=== PATIENT | female | born 1980 ===

== ENCOUNTER 2017-01-30 09:45 | Day surgery (SDC) | payer SELFPAY ==
[2016-03-11 02:55] VITALS: BMI 31.2
[2017-01-30] MEDS ORDERED: Lactated Ringer's 500 ML IV ONE (12:55)
[2017-01-30 13:05] VITALS: O2SAT 100
[2017-01-30] MEDS ORDERED: Midazolam 2 MG/2 ML VIAL ONE (13:18)
[2017-01-30] MEDS ORDERED: Propofol 10 mg/ml Inj (20 ML) ONE (13:18)
[2017-01-30 14:04] VITALS: BP 114/72; PULSE 68; RESP 12; TEMP 98
== END 2017-01-30 14:07 | disposition home or self-care (01) ==
LOC: H.ENDO 09:45
PROVIDERS: ATTEND Internal Medicine Gastroenterology
DX: K30 Functional dyspepsia (principal); K21.9 Gastro-esophageal reflux disease without esophagitis; K31.9 Disease of stomach and duodenum, unspecified

== ENCOUNTER 2017-04-01 14:39 | Emergency (ER) | payer SELFPAY ==
[2017-04-01 14:40] VITALS: BMI 31.2
[2017-04-01 14:53] VITALS: BP 122/68; PULSE 76; RESP 18; TEMP 98.2; O2SAT 99
--- NOTE | 2017-04-01 15:38 | ED PDOC ---
HPI: Back Time Seen by Provider: 04/01/17 14:40 Chief Complaint (Nursing): Back Pain Chief Complaint (Provider): Back pain History Per: Patient History/Exam Limitations: no limitations Onset/Duration Of Symptoms: Days (4) Current Symptoms Are (Timing): Still Present Quality Of Discomfort: "Pain" Severity: Moderate Previous Symptoms: None Associated Symptoms: None Exacerbating Factor(s): Movement Additional History Per: Patient Additional Complaint(s): The pt is a 36yo female, presents to the ED for evaluation of lower back pain for the past 4 days. She denies any injury or trauma to the area. Pt also denies any heavy lifting or strenuous use of her back. She currently offers no additional medical complaints. Past Medical History Reviewed: Historical Data, Nursing Documentation, Vital Signs Vital Signs: Last Vital Signs Temp 98.2 F 04/01/17 14:50 Pulse 76 04/01/17 14:50 Resp 18 04/01/17 14:50 BP 122/68 04/01/17 14:50 Pulse Ox 99 04/01/17 14:50 - Medical History PMH: No Chronic Diseases - Surgical History Surgical History: No Surg Hx - Family History Family History: States: No Known Family Hx - Living Arrangements Living Arrangements: With Family - Social History Current smoker - smoking cessation education provided: No Alcohol: None Drugs: Denies - Home Medications Home Medications: Ambulatory Orders Medication Instructions Recorded Chlorzoxazone [Lorzone] 750 mg PO BID #10 tab 04/01/17 Naproxen 500 mg PO Q12H PRN #20 ect 04/01/17 - Allergies Allergies/Adverse Reactions: Allergies Allergy/AdvReac Type Severity Reaction Status Date / Time No Known Allergies Allergy Verified 01/30/17 12:53 Review of Systems ROS Statement: Except As Marked, All Systems Reviewed And Found Negative Musculoskeletal: Positive for: Back Pain Physical Exam - Reviewed Nursing Documentation Reviewed: Yes Vital Signs Reviewed: Yes - Physical Exam Appears: Positive for: Well, Non-toxic, No Acute Distress Head Exam: Positive for: ATRAUMATIC, NORMAL INSPECTION, NORMOCEPHALIC Skin: Positive for: Normal Color Eye Exam: Positive for: Normal appearance Neck: Positive for: Normal Cardiovascular/Chest: Positive for: Regular Rate, Rhythm Respiratory: Positive for: Normal Breath Sounds. Negative for: Respiratory Distress Back: Positive for: Other (Midline tenderness lumbar spine, tenderness to right SI joint also noted.) Neurologic/Psych: Positive for: Alert, Oriented - ECG O2 Sat by Pulse Oximetry: 99 (RA) Pulse Ox Interpretation: Normal Medical Decision Making Medical Decision Making: Time: 1500 Impression: Lower back pain Plan: -- Flexeril 10 mg PO -- Tradol 15 mg IM -- XR Lumbar spine Scribe Attestation: Documented by Ryanne Hughes, acting as a scribe for ELAINA Veliz Provider Attestation: All medical record entries made by the Scribe were at my direction and personally dictated by me. I have reviewed the chart and agree that the record accurately reflects my personal performance of the history, physical exam, medical decision making, and the department course for this patient. I have also personally directed, reviewed, and agree with the discharge instructions and disposition. Disposition - Clinical Impression Clinical Impression: Back pain - Patient ED Disposition Is Patient to be Admitted: No Counseled Patient/Family Regarding: Diagnosis, Need For Followup, Rx Given - Disposition Referrals: [facility] [Outside] On License Of [facility] [Outside] Disposition: Routine/Home Disposition Time: 16:08 Condition: GOOD Prescriptions: Chlorzoxazone [Lorzone] 750 mg PO BID #10 tab Naproxen 500 mg PO Q12H PRN #20 ect PRN Reason: Pain, Severe (8-10) Instructions: Acute Low Back Pain (ED) Print Language: [place]ICAN CITIZEN
--- NOTE | 2017-04-01 16:05 | RAD ---
PROCEDURE: Radiographs of the Lumbar Spine. HISTORY: back pain COMPARISON: No prior. FINDINGS: BONES: Normal alignment. No listhesis. No fracture. DISC SPACES: Unremarkable. OTHER FINDINGS: None. IMPRESSION: Unremarkable radiographs of the lumbar spine.
== END 2017-04-01 17:57 | disposition home or self-care (01) ==
LOC: H.ER 14:39
DX: M54.5 Low back pain (principal)

== ENCOUNTER 2018-03-28 17:39 | Emergency (ER) | payer SELFPAY ==
[2018-03-28 18:10] VITALS: BMI 26.6
[2018-03-28 18:12] VITALS: BP 129/63; PULSE 65; RESP 16; TEMP 985; O2SAT 100
[2018-03-28] MEDS ORDERED: Sodium Chloride 0.9% 1,000 ML IV STA (19:20)
--- NOTE | 2018-03-28 19:23 | ED PDOC ---
HPI: Abdomen Time Seen by Provider: 03/28/18 18:59 History Per: Patient History/Exam Limitations: no limitations Onset/Duration Of Symptoms: Days Outside of [place] travel?: No Current Symptoms Are (Timing): Still Present Context: Food Location Of Pain/Discomfort: LLQ Quality Of Discomfort: Cramping Associated Symptoms: Nausea, Vomiting, Diarrhea. denies: Fever, Chills, Loss Of Appetite, Constipation Exacerbating Factors: None Alleviating Factors: None Last Bowel Movement: Today Additional History Per: Patient Additional Complaint(s): No PMHx presenting with nausea, vomiting, diarrhea, and abdominal pain. States it started on Friday afternoon, states it started with nausea and progressed to vomiting and diarrhea, both non-bloody, non-bilious. States she has tried diet modification with toast, "jeanne", and bland foods but states everything today "came back up". States she's having cramping lower abdominal pain worse on the left. States that when she has a bowel movement, the pain on the L side gets worse. No fevers, chills. No abdominal surgeries PMD: [facility] Past Medical History Reviewed: Historical Data, Nursing Documentation, Vital Signs Vital Signs: Last Vital Signs Temp 985 F H 03/28/18 18:11 Pulse 65 03/28/18 18:11 Resp 16 03/28/18 18:11 BP 129/63 03/28/18 18:11 Pulse Ox 100 03/29/18 00:02 - Medical History PMH: No Chronic Diseases - Surgical History Surgical History: No Surg Hx - Family History Family History: States: No Known Family Hx - Home Medications Home Medications: Ambulatory Orders Medication Instructions Recorded Chlorzoxazone [Lorzone] 750 mg PO BID #10 tab 04/01/17 Naproxen 500 mg PO Q12H PRN #20 ect 04/01/17 Dicyclomine [Bentyl] 20 mg PO BID #30 tab 03/29/18 Ondansetron [Zofran] 4 mg PO Q8H #12 tab 03/29/18 - Allergies Allergies/Adverse Reactions: Allergies Allergy/AdvReac Type Severity Reaction Status Date / Time No Known Allergies Allergy Verified 01/30/17 12:53 Review of Systems ROS Statement: Except As Marked, All Systems Reviewed And Found Negative Gastrointestinal: Positive for: Nausea, Vomiting, Abdominal Pain, Diarrhea Physical Exam - Reviewed Nursing Documentation Reviewed: Yes Vital Signs Reviewed: Yes - Physical Exam Appears: Positive for: Well, Non-toxic, No Acute Distress Head Exam: Positive for: ATRAUMATIC, NORMAL INSPECTION, NORMOCEPHALIC Skin: Positive for: Normal Color, Warm, DRY Eye Exam: Positive for: EOMI, Normal appearance, PERRL ENT: Positive for: Normal ENT Inspection Neck: Positive for: Normal, Painless ROM Cardiovascular/Chest: Positive for: Regular Rate, Rhythm Respiratory: Positive for: CNT, Normal Breath Sounds Gastrointestinal/Abdominal: Positive for: Bowel Sounds, Soft, Tenderness (LLQ, mild tenderness). Negative for: Organomegaly, Mass, Distended, Guarding, Rebound, Hernia, Asicites Back: Positive for: Normal Inspection Extremity: Positive for: Normal ROM Neurologic/Psych: Positive for: Alert, dye expert II-XII, Oriented - Laboratory Results Result Diagrams: 03/28/18 19:55 03/28/18 19:55 - ECG O2 Sat by Pulse Oximetry: 100 Pulse Ox Interpretation: Normal Medical Decision Making Medical Decision MakinPM A/P: No PMHx presenting with LLQ pain with nausea, vomiting, diarrhea -possibly gastroenteritis, but based on physical exam also possibly diverticulitis v. colitis, less likely appendicitis -will check labs, get CT, hydrate, toradol for pain, zofran for nausea -will re-eval 1200AM EXAM: CT Abdomen and Pelvis With Intravenous Contrast CLINICAL HISTORY: 37 years old, female; Pain; Abdominal pain; Epigastric; Additional info: Llq pain, n/v/d, abd pain TECHNIQUE: Axial computed tomography images of the abdomen and pelvis with intravenous contrast. All CT scans at this facility use one or more dose reduction techniques, viz.: automated exposure control; ma/kV adjustment per patient size (including targeted exams where dose is matched to indication; i.e. head); or iterative reconstruction technique. Coronal and sagittal reformatted images were created and reviewed. CONTRAST: 95 mL of omnipaque administered intravenously. COMPARISON: No relevant prior studies available. FINDINGS: Lung bases: Unremarkable. No mass. No consolidation. ABDOMEN: Liver: Unremarkable. No mass. Gallbladder and bile ducts: Unremarkable. No calcified stones. No ductal dilation. Pancreas: Unremarkable. No mass. No ductal dilation. Spleen: Unremarkable. No splenomegaly. Adrenals: Unremarkable. No mass. Kidneys and ureters: Unremarkable. No solid mass. No hydronephrosis. Stomach and bowel: Fluid-filled mildly prominent small bowel loops. Fluid- filled stomach. PELVIS: Appendix: No findings to suggest acute appendicitis. Bladder: Unremarkable. No mass. Reproductive: Unremarkable as visualized. ABDOMEN and PELVIS: Intraperitoneal space: Unremarkable. No free air. No significant fluid collection. Bones/joints: No acute fracture. No dislocation. RUSSEL THORNTON | Final Radiology Report CONFIDENTIALITY STATEMENT This report is intended only for use by the referring physician, and only in accordance with law. If you received this in error, call [phone]. Page 2 of 2 Soft tissues: Unremarkable. Vasculature: Unremarkable. No abdominal aortic aneurysm. Lymph nodes: Unremarkable. No enlarged lymph nodes. IMPRESSION: 1. CT findings most consistent with a nonspecific enteritis. 2. No bowel obstruction. 3. Remainder of findings as above. Patient is feeling much better, no longer vomiting, abdomen feels better, no longer tender. Advised patient to followup with PMD, will prescribe zofran and bentyl. Return precautions given. Well appearing, stable vitals upon discharge. Disposition - Clinical Impression Clinical Impression: Enteritis - Patient ED Disposition Is Patient to be Admitted: No - Disposition Referrals: [facility] [Outside] Disposition: Routine/Home Disposition Time: 00:02 Condition: IMPROVED Prescriptions: Dicyclomine [Bentyl] 20 mg PO BID #30 tab Ondansetron [Zofran] 4 mg PO Q8H #12 tab Instructions: Viral Gastroenteritis Forms: [facility] (Guyanese) Print Language: LATVIAN
[2018-03-28 20:01] LABS: BASO % 0.3 % (0.0-2.0); EOS # 0.2 K/uL (0.0-0.7); EOS % 2.9 % (0.0-4.0); LYMPH # 2.8 K/uL (1.0-4.3); LYMPH % 34.1 % (20.0-40.0); MEAN CELL VOLUME 87.9 fl (81.0-99.0); MEAN CORPUSCULAR HEMOGLOBIN 29.5 pg (27.0-31.0); MEAN CORPUSCULAR HGB CONC 33.5 g/dL (33.0-37.0); MEAN PLATELET VOLUME 9.4 fl (7.2-11.7); MONO # 0.6 K/uL (0.0-0.8); MONO % 7.7 % (0.0-10.0); NEUT # 4.6 K/uL (1.8-7.0); RBC 4.4 Mil/uL (3.80-5.20); RED CELL DISTRIBUTION WIDTH 13.7 % (11.5-14.5); WHITE BLOOD COUNT 8.3 K/uL (4.8-10.8)
[2018-03-28 20:11] LABS: SQUAMOUS EPITHIAL 4 /hpf (0-5); URINE BILIRUBIN NEGATIVE (NEGATIVE); URINE BLOOD LARGE (NEGATIVE); URINE CLARITY CLOUDY (Clear); URINE COLOR YELLOW (YELLOW); URINE GLUCOSE (UA) NEG (Normal); URINE LEUKOCYTE ESTERASE NEG Leu/uL (Negative); URINE PROTEIN NEGATIVE (NEGATIVE); URINE UROBILINOGEN 0.2-1.0 mg/dL (0.2-1.0)
[2018-03-28 20:14] LABS: ALB/GLOB RATIO 1.3 (1.0-2.1); ALBUMIN 4.3 g/dL (3.5-5.0); ALT/SGPT 28 U/L (9-52); AST/SGOT 23 U/L (14-36); BILIRUBIN,DIRECT 0.2 mg/ml (0.0-0.4); BLOOD UREA NITROGEN 17 mg/dl (7-17); CALCIUM 9.2 mg/dL (8.4-10.2); GFR AFRICAN-AMERICAN > 60; GFR NON-AFRICAN AMERICAN > 60; LIPASE 119 U/L (23-300)
[2018-03-28] MEDS ORDERED: Iohexol 300 100 ML IJ ONE (21:18)
[2018-03-28] MEDS ORDERED: Sodium Chloride 0.9% 50 ML IV ONE (21:18)
--- NOTE | 2018-03-28 23:23 | CT ---
EXAM: CT Abdomen and Pelvis With Intravenous Contrast CLINICAL HISTORY: 37 years old, female; Pain; Abdominal pain; Epigastric; Additional info: Llq pain, n/v/d, abd pain TECHNIQUE: Axial computed tomography images of the abdomen and pelvis with intravenous contrast. All CT scans at this facility use one or more dose reduction techniques, viz.: automated exposure control; ma/kV adjustment per patient size (including targeted exams where dose is matched to indication; i.e. head); or iterative reconstruction technique. Coronal and sagittal reformatted images were created and reviewed. CONTRAST: 95 mL of omnipaque administered intravenously. COMPARISON: No relevant prior studies available. FINDINGS: Lung bases: Unremarkable. No mass. No consolidation. ABDOMEN: Liver: Unremarkable. No mass. Gallbladder and bile ducts: Unremarkable. No calcified stones. No ductal dilation. Pancreas: Unremarkable. No mass. No ductal dilation. Spleen: Unremarkable. No splenomegaly. Adrenals: Unremarkable. No mass. Kidneys and ureters: Unremarkable. No solid mass. No hydronephrosis. Stomach and bowel: Fluid-filled mildly prominent small bowel loops. Fluid-filled stomach. PELVIS: Appendix: No findings to suggest acute appendicitis. Bladder: Unremarkable. No mass. Reproductive: Unremarkable as visualized. ABDOMEN and PELVIS: Intraperitoneal space: Unremarkable. No free air. No significant fluid collection. Bones/joints: No acute fracture. No dislocation. Soft tissues: Unremarkable. Vasculature: Unremarkable. No abdominal aortic aneurysm. Lymph nodes: Unremarkable. No enlarged lymph nodes. IMPRESSION: 1. CT findings most consistent with a nonspecific enteritis. 2. No bowel obstruction. 3. Remainder of findings as above.
== END 2018-03-29 01:45 | disposition home or self-care (01) ==
LOC: H.ER 17:39
DX: K52.9 Noninfective gastroenteritis and colitis, unspecified (principal)
CPT/HCPCS: 74177; 80048; 80076; 81003; 81025; 83690; 85025; 87040; 96374; 96375; 99283; J1885; J2405; J2765; J7030; Q9967